=== PATIENT | female | born 1955 | race Two or more races ===

== ENCOUNTER → 2016-08-11 | Day surgery (SDC) | payer BC ==
[~2016-08-11] VITALS: Ht 165.1 cm; Wt 92.6 kg
[~2016-08-11] MED LIST: ADVIL200 MG PO; AMOXICILLIN500 MG PO; BIAXIN500 MG PO; LOSARTAN-HCTZ1 EAC2 PO; PROTONIX40 MG PO
== END | disposition disaster alternative care site (69) ==
LOC: GPOC 07-24 11:00 → GEND 07:28
PROC: 0DB98ZX Excision of Duodenum, Via Natural or Artificial Opening Endoscopic, Diagnostic (ICD-10-PCS; principal; 2016-08-11)
DX: K29.50 Unspecified chronic gastritis without bleeding (principal); I10 Essential (primary) hypertension; Z98.51 Tubal ligation status; Z79.2 Long term (current) use of antibiotics; Z79.899 Other long term (current) drug therapy
CPT/HCPCS: J7030